=== PATIENT | female | born 1985 | race Caucasian/White ===

== ENCOUNTER 2021-05-04 09:00 | Emergency (ER) | payer BC, OTHER ==
[~2021-05-04] VITALS: Ht 162.6 cm; Wt 63.6 kg
[2021-05-04 09:14] VITALS: BP 140/95
[2021-05-04] MEDS ORDERED: DEXAMETHASONE 4 MG TABLET PO ONE (09:30)
[2021-05-04] MEDS ORDERED: diphenhydrAMINE HCL 25 MG CAPSULE PO ONE (09:30)
[2021-05-04] MEDS ORDERED: PROCHLORPERAZINE 10 MG/2 ML VIAL. IM ONE (09:30)
[2021-05-04 09:42] LABS: BASO % 1 % (0-3); EOS # 0.1 x10^3/uL (0.0-0.7); EOS % 2 % (0-3); HEMATOCRIT 29.8 % (36.0-47.0); HEMOGLOBIN 10.4 g/dL (12.0-15.5); LYMPH % 22 % (24-48); MEAN CORPUSCULAR HEMOGLOBIN 31 pg (25-35); MEAN CORPUSCULAR HGB CONC 35 g/dL (31-37); MEAN CORPUSCULAR VOLUME 89 fL (79-100); MONO # 0.3 x10^3/uL (0.0-1.1); MONO % 6 % (0-9); NEUT # 3.1 x10^3/uL (1.8-7.7); NEUT % 69 % (31-73); PLATELET COUNT 292 x10^3/uL (140-400); RED BLOOD COUNT 3.36 x10^6/uL (3.50-5.40); RED CELL DISTRIBUTION WIDTH 12.6 % (11.5-14.5); WHITE BLOOD COUNT 4.5 x10^3/uL (4.0-11.0)
--- NOTE | 2021-05-04 09:44 | PHYS DOC ---
Past Medical History Past Medical History: No Pertinent History Additional Past Medical Histor: cervical cancer,CARDIOMYOPATHY Past Surgical History: No Surgical History Smoking Status: Never Smoker Alcohol Use: Occasionally Drug Use: None General Adult EDM: Chief Complaint: DIZZY/LIGHT HEADED HPI: HPI: 35-year-old female past medical history of iron deficiency anemia with blood transfusion September 2019, HCM and diverticulitis, presents to the ED with , (patient consents to his/her/their knowledge and involvement in pts' medical care), complaints of headache described as pressure with pain in the head, neck and eyes with blurry vision stating she feels as if she is staring into space it is hard to focus. Reports associated fatigue, lethargy, dizziness with associated nausea. States she felt this way the last time she was transfused, had a hemoglobin of 5 (this was not surrounding childbirth, has 3 children). States she has been on her menses for the past week. Was seen at [facility] for "vaginal bleeding really bad" 1 week ago and was told her hemoglobin was 11.5. Reports her vaginal bleeding is currently mild/has lessened. No known history of Covid and is not vaccinated. Reports she is not prescribed any medications, no beta-blockers because she was told her "hypertrophic cardio myopathy" was not obstructive. Denies any associated near syncope, syncope, dyspnea, sore throat, earache, chest pain or pressure or upper back pain. No history of blunt head trauma. Review of Systems: Review of Systems: Constitutional: Denies fever or chills. [] Eyes: Denies eye discharge or redness HENT: Denies nasal congestion or sore throat. [] Respiratory: Denies cough or shortness of breath. [] Cardiovascular: Denies chest pain or edema. [] GI: Denies abdominal pain, vomiting, bloody stools or diarrhea. [] : Denies dysuria or hematuria Musculoskeletal: Denies back pain or joint pain. [] Integument: Denies rash or diaphoresis Neurologic: Denies neck stiffness or focal weakness or sensory changes. [] Endocrine: Denies polyuria or polydipsia. [] Lymphatic: Denies swollen glands. [] Psychiatric: Denies depression or anxiety. [] Heart Score: C/O Chest Pain: No Risk Factors: Risk Factors: DM, Current or recent (<one month) smoker, HTN, HLP, family history of CAD, obesity. Risk Scores: Score 0 - 3: 2.5% MACE over next 6 weeks - Discharge Home Score 4 - 6: 20.3% MACE over next 6 weeks - Admit for Clinical Observation Score 7 - 10: 72.7% MACE over next 6 weeks - Early Invasive Strategies Current Medications: Current Medications Medications (Trade) Dose Ordered Sig/Miguel Start Time Stop Time Status Last Admin Dose Admin Dexamethasone (Decadron) 10 mg 1X ONCE 05/04/21 09:30 05/04/21 09:33 DC Diphenhydramine HCl (Benadryl) 25 mg 1X ONCE 05/04/21 09:30 05/04/21 09:33 DC Prochlorperazine Edisylate (Compazine) 10 mg 1X ONCE 05/04/21 09:30 05/04/21 09:33 DC Allergies: Allergies: Allergies Coded Allergies Type Severity Reaction Last Updated Verified No Known Drug Allergies 10/05/13 No Physical Exam: PE: Constitutional: Well developed, well nourished, no acute distress, non-toxic appearance. HENT: Normocephalic, atraumatic, moist mucous membranes Eyes: PERRLA, EOMI, conjunctiva normal, no discharge, no nystagmus, no conjunctival pallor Neck: Normal range of motion, supple, no nuchal rigidity or meningismus Cardiovascular: S1/2 present, regular rhythm Lungs & Thorax: Speaking in full sentences, bilateral equal chest rise, no tachypnea or increased work of breathing Abdomen: soft, no tenderness, Skin: Warm, dry, no erythema, no rash. [] Extremities: No tenderness, no cyanosis, no lower extremity edema Neurologic: Alert and oriented X 3, normal motor function, normal sensory function, no focal deficits noted, steady gait Psychologic: Affect normal, judgement normal, mood -very anxious Current Patient Data: Vital Signs: Vital Signs Date Time Temp Pulse Resp B/P (MAP) Pulse Ox O2 Delivery O2 Flow Rate FiO2 05/04/21 09:14 97.9 95 20 140/95 (84) 100 Room Air 97.9 EKG: EKG: Sinus rhythm 59 bpm, no axis deviation, normal intervals, Q waves in inferior lateral leads (slightly dagger in appearance), no ST elevations or ST depressions, T wave inversion aVL, no active chest pain Radiology/Procedures: Radiology/Procedures: IMAGING REPORT Signed PATIENT: LOBITO JACOME ACCOUNT: [id number] : 1985 LOCATION: ER AGE: 35 SEX: F EXAM STATUS: REG ER ORD. PHYSICIAN: TERESA COX DO REASON: dizzy, headache PROCEDURE: CHEST AP ONLY XR CHEST 1V History: Reason: dizzy, headache / Spl. Instructions: / History: Comparison: March 07, 2020 Findings: No consolidation or pleural effusion. Normal heart size. No pneumothorax. Impression: 1. No acute cardiopulmonary process. Electronically signed by: Leonardo Moralez DO (05/04/2021 9:47 AM) [id number] DICTATED and SIGNED BY: LEONARDO MORALEZ DO DATE: 05/04/21 [id number] Course & Med Decision Making: Course & Med Decision Making Pertinent Labs and Imaging studies reviewed. (See chart for details) Concern for headache and dizziness in the setting of normocytic anemia, reports she is taking iron. I offered covid testing and encouraged vaccination. On reevaluation patient reports her symptoms have resolved after migraine cocktail. Hg dropped 1 gm and will need repeat H/H in 2-3 days. May benefit from obcps to control menses flow. Dizziness is nonexertional with no palpitations, dyspnea, chest pain, syncope or near syncope. Pt has no known obstructive physiology. 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 Will discharge home with strict ED return precautions were given for chest pain, dyspnea, dizziness with exertion, syncope, palpitations or syncope. Encouraged urgent outpatient follow-up with PMD and cardiology. Life-threatening processes were considered but are low suspicion at this time, given history, physical exam and ED workup. Pt was educated on all prescription medications and adverse effects. All patient's questions were answered and pt was stable at time of discharge. Life/limb-threatening differential includes but is not limited to, cerebrovascular accident, cerebellar stroke, acute coronary syndrome, carbon monoxide poisoning or other toxidrome, syncope differential including cardiac arrhythmia/PE/aortic aneurysm or dissection/ACS, Guillan Mansfield syndrome, thyroid disease, infection, central and peripheral vertigo, intracranial hemorrhage, vertebrobasilar insufficiency, heat stroke, electrolyte disorder, rheumatologic or autoimmune disorder I have spoken with the patient and/or caregivers. I explained the patient's condition, diagnoses and treatment plan based on the information available to me at this time. I have answered the patient and/or caregiver's questions and addressed any concerns. The patient and/or caregivers have a good understanding of patient's diagnosis, condition and treatment plan as can be expected at this point. Vital signs have been stable. Patient's condition is stable and gene ropriate for discharge from the emergency department. Patient will pursue further outpatient evaluation with primary care physician or other designated or consulting physician as outlined in the discharge instructions. The patient and/or caregivers are agreeable to this plan of care and follow-up instructions have been explained in detail. The patient and/or caregivers have received these instructions in written form and have expressed an understanding of the discharge instructions. The patient and/or caregivers are aware that any significant change of condition or worsening of symptoms should prompt immediate return to this or the closest emergency department or call to 911. Bree Disclaimer: Bree Disclaimer: This electronic medical record was generated, in whole or in part, using a voice recognition dictation system. Departure Departure Impression: Primary Impression: Headache Additional Impressions: Normocytic anemia Dizziness Disposition: 01 HOME / SELF CARE / HOMELESS Condition: STABLE Referrals: NON,STAFF (PCP) Follow-up with your primary care physician in 24 to 48 hours OR FOLLOW UP WITH FAMILY MEDICINE: [address] [facility], [address] [place] [address] Patient Instructions: Anemia, Nonspecific-Brief, General Headache Without Cause Additional Instructions: FOLLOW UP WITH CARDIOLOGY: FOR DEFINITIVE MANAGEMENT WITHIN THE NEXT 3 -5 DAYS, AVOID EXERTION UNTIL SEEN BY YOUR EKG/ECG TECHNICIAN RETURN TO ED IMMEDIATELY IF YOU SHOULD FAINT, FEEL IF YOU ARE FAINT, HAVE ANY CHEST PAIN OR DIFFICULTIES BREATHING OR THE DIZZINESS RETURNS [facility] [address] [facility] [address] [place] [address] FOLLOW UP WITH: FOR DEFINITIVE MANAGEMENT of anemia Hematology/Oncology [facility] [address] [place] [address] [place] [address] EMERGENCY DEPARTMENT GENERAL DISCHARGE INSTRUCTIONS Thank you for coming to [facility] Emergency Department (ED) today and trusting us with you care. We trust that you had a positive experience in our Emergency Department. If you wish to speak to the department management, you may call the Director at [phone]. YOUR FOLLOW UP INSTRUCTIONS ARE FOLLOWS: 1. Do you have a private Doctor? If you do not have a private doctor, please ask for a resource list of physicians or clinics that may be able to assist you with follow up care. ADDITIONAL INSTRUCTIONS AND INFORMATION: 1. Your care today has been supervised by a physician who is specially trained in emergency care. Many problems require more than one evaluation for a complete diagnosis and treatment. We recommend that you schedule your follow up appointment as recommended to ensure complete treatment of you illness or injury. If you are unable to obtain follow up care and continue to have a problem, or if your condition worsens, we recommend that you return to the ED. 2. We are not able to safely determine your condition over the phone nor are we able to give sound medical advice over the phone. For these safety reasons, if you call for medical advice we will ask you to come to the ED for further evaluation. 3. If you have any questions regarding these discharge instructions please call the ED at [phone]. SAFETY INFORMATION: In the interest of safety, wellness, and injury prevention; we encourage you to wear your sealbelt, if you smoke; quite smoking, and we encourage family to use a protective helmet for bicycling and other sporting events that present an increased risk for head injury. IF YOUR SYMPTOMS WORSEN OR NEW SYMPTOMS DEVELOP, OR YOU HAVE CONCERNS ABOUT YOUR CONDITION; OR IF YOUR CONDITION WORSENS WHILE YOU ARE WAITING FOR YOUR FOLLOW UP APPOINTMENT; EITHER CONTACT YOUR PRIMARY CARE DOCTOR, THE PHYSICIAN WHOSE NAME AND NUMBER YOU WERE GIVEN, OR RETURN TO THE ED IMMEDIATELY. TERESA COX DO May 04, 2021 09:44
[2021-05-04] MEDS ORDERED: diphenhydrAMINE 50 MG/ML VIAL IVP ONE (09:45)
[2021-05-04] MEDS ORDERED: DEXAMETHASONE SOD PHOS 20 MG/5 ML VIAL. IV ONE (09:45)
[2021-05-04] MEDS ORDERED: IV NORMAL SALINE 1000ML BAG 1,000 ML IV ONE (09:45)
[2021-05-04] MEDS ORDERED: PROCHLORPERAZINE 10 MG/2 ML VIAL. IV ONE (09:45)
[2021-05-04 09:50] LABS: CALCIUM 8.7 mg/dL (8.5-10.1); CREATININE 0.7 mg/dL (0.6-1.0); GFR 96.4; POTASSIUM 3.7 mmol/L (3.5-5.1)
--- NOTE | 2021-05-04 09:50 | RAD ---
XR CHEST 1V History: Reason: dizzy, headache / Spl. Instructions: / History: Comparison: March 07, 2020 Findings: No consolidation or pleural effusion. Normal heart size. No pneumothorax. Impression: 1. No acute cardiopulmonary process. Electronically signed by: Leonardo Smith DO (05/04/2021 9:47 AM) [id number]
[2021-05-04 09:57] LABS: ALBUMIN 3.7 g/dL (3.4-5.0); ALBUMIN/GLOBULIN RATIO 1.1 (1.0-1.7); TOTAL BILIRUBIN 0.4 mg/dL (0.2-1.0)
[2021-05-04 10:07] LABS: BILIRUBIN,URINE NEGATIVE (NEG); CLARITY,URINE CLEAR; COLOR,URINE YELLOW; NITRITE,URINE NEGATIVE (NEG); PROTEIN,URINE NEGATIVE (NEG-TRACE); UROBILINOGEN,URINE 0.2 mg/dL (0.2 mg/dL)
[2021-05-04 10:18] LABS: RBC,URINE TNTC /HPF (0-2)
[2021-05-04 10:19] LABS: BACTERIA,URINE 0 /HPF (0-FEW); WBC,URINE 0 /HPF (0-4)
--- NOTE | 2021-05-05 18:55 | EKG ---
[facility] [address] [place] [address] Test Date: 2021-05-04 Test Time: 09:45:20 Pat Name: LOBITO JACOME Department: Room: Gender: F Automotive General Manager: : 1985 Requested By: TERESA COX Order Number: [id number] Reading MD: Measurements Intervals [place] Rate: 59 P: 45 HI: 138 QRS: 49 QRSD: 80 T: 64 QT: 398 QTc: 398 Interpretive Statements SINUS RHYTHM NO SPECIFIC ECG ABNORMALITIES RI6.01 No previous ECG available for comparison
--- NOTE | 2021-05-06 10:17 | NUR ---
IP: Attempted to contact pt concerning covid results. No answer, left a voicemail to return the call.
== END 2021-05-04 12:15 | disposition home or self-care (01) ==
LOC: ER 09:00
DX: R51.9 Headache, unspecified (principal); Z20.822 Contact with and (suspected) exposure to COVID-19; D64.9 Anemia, unspecified; R42 Dizziness and giddiness
CPT/HCPCS: 36415; 71045; 80053; 81001; 83735; 84484; 85025; 87426; 93005; 96361; 96374; 96375; 99285; J0780; J1100; J1200; J7030; U0003; U0005